=== PATIENT | female | born 1970 | race Two or more races ===

== ENCOUNTER 2017-02-07 11:06 | Emergency (ER) | payer BC ==
[~2017-02-07] VITALS: Ht 154.9 cm; Wt 54.7 kg
[~2017-02-07 11:06] MED LIST: Ascorbic Acid,Ester- PO; Cipro PO; Motrin PO; Percocet 5/325,Endoc PO; [UNRECOGNIZED DRUG - OTHER] PO
[2017-02-07 12:18] LABS: HEMATOCRIT 39.6 % (36.0-46.0); MCH 31.7 PG (29.0-34.0); MCHC 33.3 G/DL (30.0-36.0); MEAN PLAT.VOLUME 9.6 uM^3 (9.5-12.4); PLATELET COUNT 327 K/uL (156-360); RBC DIS.WIDTH-CV 11.9 % (11.8-14.6); RBC DIS.WIDTH-SD 41.6 % (39-53); RED BLOOD COUNT 4.17 M/uL (3.80-5.20); WHITE BLOOD COUNT 13.4 K/uL (4.1-10.2)
[2017-02-07 12:30] LABS: CHLORIDE 106 mEq/L (99-109); POTASSIUM 4.1 mEq/L (3.7-5.4); SODIUM 139 mEq/L (136-147)
[2017-02-07 12:32] LABS: GLUCOSE 151 mg/dL (70-99)
[2017-02-07 12:34] LABS: ANION GAP 12 MEQ/L (2-14); TOTAL BILIRUBIN 0.8 mg/dL (0.0-1.0)
[2017-02-07 12:36] LABS: ALKALINE PHOSPHATASE 50 IU/L (3-129); GFR ESTIMATE (CALCULATED) > 59 mL/min/
[2017-02-07 12:37] LABS: UREA NITROGEN (BUN) 14 mg/dL (9-23)
[2017-02-07 12:39] LABS: LIPASE 19 U/L (1.0-51.0)
[2017-02-07 12:45] LABS: QUANTITATIVE HCG < 4.0 MIU/ML
[2017-02-07 13:39] LABS: ADD MIUA? YES; BILIRUBIN NEGATIVE; BLOOD NEGATIVE; COLOR YELLOW ((YELLOW)); GLUCOSE (STRIP) NEGATIVE; KETONES 5; LEUKOCYTES NEGATIVE; NITRITE NEGATIVE; PROTEIN (STRIP) NEGATIVE; SPECIFIC GRAVITY 1.016 (1.000-1.030); UROBILINOGEN 0.2 MG/DL (0.2-1.0)
[2017-02-07 14:16] LABS: BACTERIA NONE SEEN /HPF; EPITHELIAL CELLS RARE /HPF; MUCUS NONE SEEN /LPF; RED BLOOD CELLS 0-5 /HPF (0-5); WHITE BLOOD CELLS 0-5 /HPF (0-5)
[2017-02-07 14:57] LABS: INTER. NORMALIZED RATIO 1.1; PTT 22.9 (25-32)
[2017-02-07 15:40] VITALS: BP 132/69
== END 2017-02-07 16:04 | disposition short-term general hospital (02) ==
LOC: EME 11:06
PROVIDERS: Nurse Practitioner Family
DX: S36.115A Moderate laceration of liver, initial encounter (principal); W01.198A Fall on same level from slipping, tripping and stumbling with subsequent striking against other object, initial encounter; Y92.34 Swimming pool (public) as the place of occurrence of the external cause; Y93.11 Activity, swimming; Z88.0 Allergy status to penicillin
CPT/HCPCS: 71260; 74177; 80053; 81003; 83690; 84702; 85027; 85610; 85730; 86900; 86901; 99281; 99284; J2270; J2405; J3010; J7030; J7040